=== PATIENT | female | born 1960 | race Caucasian/White ===

== ENCOUNTER 2017-07-28 06:28 | Emergency (ER) | payer MEDICAID ==
[~2017-07-28] VITALS: Ht 170.2 cm; Wt 93.3 kg
[2017-07-28] MEDS ORDERED: SODIUM CHLORIDE FLUSH 10ML SYR IVF ONE (07:00)
[2017-07-28] MEDS ORDERED: PROCHLORPERAZINE 5 MG/ML, 2ML IVPush ONE (07:00)
[2017-07-28] MEDS ORDERED: KETOROLAC 30 MG/1 ML IVPush ONE (07:00)
[2017-07-28] MEDS ORDERED: DIPHENHYDRAMINE 50 MG/ML, 1ML IVPush ONE (07:00)
[2017-07-28] MEDS ORDERED: SODIUM CHLORIDE 0.9% 1,000ML IVBOLUS ONE (07:00)
[2017-07-28] MEDS ORDERED: PROCHLORPERAZINE 5 MG/ML, 2ML ONE (07:32)
[2017-07-28] MEDS ORDERED: DIPHENHYDRAMINE 50 MG/ML, 1ML ONE (07:32)
[2017-07-28] MEDS ORDERED: KETOROLAC 30 MG/1 ML ONE (07:32)
[2017-07-28 07:43] LABS: BASOPHILS # (AUTO) 0.04 x10^3/uL (0-0.1); BASOPHILS % (AUTO) 1 % (0-1); EOSINOPHILS # (AUTO) 0.14 x10^3/uL (0-0.4); EOSINOPHILS % (AUTO) 2 % (1-7); LYMPHOCYTES # (AUTO) 3.24 x10^3/uL (1-3.4); LYMPHOCYTES % (AUTO) 47 % (22-44); MD NO; MEAN CORPUSCULAR HEMOGLOBIN 30.6 pg (27.0-34.8); MEAN CORPUSCULAR HGB CONC 33.7 g/dL (32.4-35.8); MEAN PLATELET VOLUME 7.8 fL (7.4-10.4); MONOCYTES % (AUTO) 7 % (2-9); NEUTROPHILS # (AUTO) 2.95 x10^3/uL (1.8-6.8); NEUTROPHILS % (AUTO) 43 % (42-75); PLATELET COUNT 131 x10^3/uL (130-400); RED BLOOD COUNT 4.71 x10^6/uL (3.82-5.3)
[2017-07-28 07:53] LABS: ALANINE AMINOTRANSFERASE 35 U/L (12-78); ALBUMIN 3.6 g/dL (3.4-5.0); ANION GAP 6 mmol/L (5-15); CALCIUM 8.7 mg/dL (8.5-10.1); CHLORIDE 104 mmol/L (98-107); CREATININE 0.72 mg/dL (0.55-1.02)
[2017-07-28 07:55] LABS: ALKALINE PHOSPHATASE 103 U/L (45-117); BILIRUBIN,TOTAL 0.4 mg/dL (0.2-1.0); TOTAL PROTEIN 7.3 g/dL (6.4-8.2)
[2017-07-28] MEDS ORDERED: PROPARACAINE OPHTH 0.5%, 15ML ONE (08:17)
[2017-07-28] MEDS ORDERED: FLUORESCEIN OPHTHALMIC 1 MG STRIP EACHEYE ONE (08:30)
[2017-07-28] MEDS ORDERED: PROPARACAINE OPHTH 0.5%, 15ML EACHEYE ONE (08:30)
[2017-07-28 09:45] VITALS: BP 132/69
== END 2017-07-28 10:43 | disposition home or self-care (01) ==
LOC: ED 08:48
DX: G44.019 Episodic cluster headache, not intractable (principal); I10 Essential (primary) hypertension; C73 Malignant neoplasm of thyroid gland; E11.9 Type 2 diabetes mellitus without complications; E78.5 Hyperlipidemia, unspecified; Z88.6 Allergy status to analgesic agent; Z86.73 Personal history of transient ischemic attack (TIA), and cerebral infarction without residual deficits
CPT/HCPCS: 36415; 70450; 80053; 85025; 96361; 96374; 96375; 99285; J0780; J1200; J1885; J7030

== ENCOUNTER 2017-08-26 16:46 | Emergency (ER) | payer MEDICAID ==
[~2017-08-26] VITALS: Ht 170.2 cm; Wt 93.0 kg
[2017-08-26 16:56] VITALS: BP 133/81
[2017-08-26] MEDS ORDERED: METOCLOPRAMIDE 5 MG/ML, 2ML ONE (17:42)
[2017-08-26] MEDS ORDERED: DIPHENHYDRAMINE 50 MG/ML, 1ML ONE (17:42)
[2017-08-26] MEDS ORDERED: SODIUM CHLORIDE FLUSH 10ML SYR IVF ONE (18:00)
[2017-08-26] MEDS ORDERED: METOCLOPRAMIDE 5 MG/ML, 2ML IVPush ONE (18:00)
[2017-08-26] MEDS ORDERED: DIPHENHYDRAMINE 50 MG/ML, 1ML IVPush ONE (18:00)
[2017-08-26] MEDS ORDERED: SODIUM CHLORIDE 0.9% 1,000ML IVBOLUS ONE (18:00)
[2017-08-26] MEDS ORDERED: KETOROLAC 30 MG/1 ML ONE (18:42)
[2017-08-26] MEDS ORDERED: KETOROLAC 30 MG/1 ML IVPush STA (18:42)
== END 2017-08-26 19:07 | disposition home or self-care (01) ==
LOC: ED 18:13
DX: G43.011 Migraine without aura, intractable, with status migrainosus (principal); I10 Essential (primary) hypertension; E11.9 Type 2 diabetes mellitus without complications; E78.5 Hyperlipidemia, unspecified; C73 Malignant neoplasm of thyroid gland; Z87.891 Personal history of nicotine dependence; Z88.6 Allergy status to analgesic agent
CPT/HCPCS: 96361; 96374; 96375; 99284; J1200; J1885; J2765; J7030